=== PATIENT | male | born 1965 | race Caucasian/White ===

== ENCOUNTER 2019-06-19 10:13 | Day surgery (SDC) | payer OTHER ==
[2019-06-16 15:56] VITALS: BMI 28.5
[2019-06-19 11:10] VITALS: RESP 16; TEMP 97.1
[2019-06-19] MEDS: LACTATED RINGERS 1,000 ML IV SCH ×2 (11:14→12:12)
[2019-06-19] MEDS ORDERED: PROPOFOL 10 MG/ML 20 ML VIAL IV ONE (12:13)
--- NOTE | 2019-06-19 12:36 | P.PCN ---
Date of Procedure: 06/19/19 Procedure(s) Performed: BRIEF HISTORY: Patient is a 53-year-old pleasant white male scheduled for an elective colonoscopy as a part of screening for colorectal neoplasia. PROCEDURE PERFORMED: Colonoscopy with snare polyp rectum PREOPERATIVE DIAGNOSIS: Screening for colon cancer. IV sedation per Anesthesia. PROCEDURE: After informed consent was obtained, the patient, was brought into the endoscopy unit. IV sedation was administered by Anesthesia under continuous monitoring. Digital rectal examination was normal. Initially the Olympus CF-160 flexible video colonoscope was then inserted in the rectum, gradually advanced into the cecum without any difficulty. Careful examination was performed as the scope was gradually being withdrawn. Ileocecal valve and the appendiceal orifice were visualized and appeared normal. Prep was excellent. Mucosa of the cecum, ascending colon appeared normal. In the transverse colon there was a 5 mm sessile polyp removed by snare polypectomy. Rest of the transverse colon, descending colon, sigmoid colon, and rectum appeared normal. Retroflexion was performed in the rectum and no lesions were seen. The patient tolerated the procedure well. IMPRESSION: 5 mm colon polyp status post polypectomy Rest of the colon appeared normal RECOMMENDATIONS: Findings of this examination were discussed with the patient as well as his family. He was advised to follow with the biopsy results. If the biopsy shows an adenoma, he can have a repeat colonoscopy in 5 years.
[2019-06-19 12:56] VITALS: BP 121/76; PULSE 69
== END 2019-06-19 13:05 | disposition home or self-care (01) ==
LOC: ORWHC2ENDO 10:13
PROVIDERS: ATTEND Internal Medicine Gastroenterology
DX: Z12.11 Encounter for screening for malignant neoplasm of colon (principal); D12.3 Benign neoplasm of transverse colon
CPT/HCPCS: 88305; 45385; J2704

== ENCOUNTER → 2019-06-23 | Outpatient (CLI) | payer OTHER ==
--- NOTE | 2019-06-23 09:12 | US ---
EXAMINATION TYPE: US liver DATE OF EXAM: 06/23/2019 COMPARISON: NONE CLINICAL HISTORY: R74.8 ABN LIVER ENZYMES. no symptoms EXAM MEASUREMENTS: Liver Length: 20.6 cm Gallbladder Wall: 0.2 cm CBD: 0.5 cm Right Kidney: 10.6 x 5.0 x 4.7 cm Pancreas: wnl Liver: difficult to penetrate and slightly enlarged Gallbladder: wnl Evidence for sonographic Obando's sign: no CBD: wnl Right Kidney: wnl Visualized pancreas is slightly heterogeneous without mass or ductal dilatation. IVC is seen near hep atic dome. Visualized liver is heterogeneously hyperechoic without intrahepatic ductal dilatation. Ev aluation for focal masses is suboptimal. Common bile duct measures within normal limits. No shadowing mobile gallstones. No hydronephrosis in the right kidney is seen. IMPRESSION: Heterogeneous hyperechoic appearance of liver favors diffuse fatty infiltration, underlyi ng hepatocellular disease is felt less likely but not excluded. Imaging guided random biopsy for tiss ue analysis can be performed if desired.
== END | disposition home or self-care (01) ==
LOC: RADUSWWP 08:05
PROVIDERS: ATTEND Family Medicine
DX: R74.8 Abnormal levels of other serum enzymes (principal)
CPT/HCPCS: 76705

== ENCOUNTER → 2019-08-12 | Outpatient (CLI) | payer OTHER ==
--- NOTE | 2019-08-12 16:03 | US ---
EXAMINATION TYPE: US scrotum with doppler. Grayscale and color Doppler Duplex imaging performed of t he scrotum. DATE OF EXAM: 08/12/2019 COMPARISON: NONE CLINICAL HISTORY: N50.89 DISORDER OF MALE GENITAL ORGANS. Pt states palpable lump left testicle x 2 d ays, denies pain EXAM MEASUREMENTS: TESTICLES: Right Testicle: 4.4 x 2.5 x 3.6 cm Left Testicle: 4.0 x 2.0 x 3.4 cm EPIDIDYMIS HEAD: Right Epididymis: 1.1 cm Left Epididymis: 1.0 cm Doppler performed to assess for testicular vascularity; good bilateral color flow and waveforms are s een. There is no evidence of testicular torsion. Presence of hydroceles: No Presence of varicoceles: Left No abnormality appreciated within left testicle/scrotum where pt feels palpable/ Microcalcification s scattered bilaterally IMPRESSION: Incidentally noted testicular microlithiasis. No sonographic abnormality to correspond to the patient's palpable left testicular abnormality.
== END | disposition home or self-care (01) ==
LOC: RADUSWWP 15:27
PROVIDERS: ATTEND Family Medicine
DX: N50.89 Other specified disorders of the male genital organs (principal)
CPT/HCPCS: 76870; 93975

== ENCOUNTER 2024-10-20 09:53 | Day surgery (SDC) | payer OTHER ==
[2024-10-19 10:28] VITALS: BMI 26.4
[2024-10-20] MEDS ORDERED: LIDOCAINE 1% (10MG/ML) FOR IV START INTRADERMA PRN (10:12)
[2024-10-20 10:21] VITALS: TEMP 98.2
[2024-10-20] MEDS: IV FLUID CONTINUATION 1,000 ML IV ONE (10:27)
[2024-10-20] MEDS: LACTATED RINGERS 1,000 ML IV SCH (10:30)
[2024-10-20] MEDS ORDERED: PROPOFOL 10 MG/ML 20 ML VIAL IV ONE (11:52)
[2024-10-20] MEDS ORDERED: LIDOCAINE 1% INJ 10MG/ML (20 ML MDV) ONE (11:52)
--- NOTE | 2024-10-20 12:13 | P.PCN ---
Date of Procedure: 10/20/24 Procedure(s) Performed: BRIEF HISTORY: Patient is a 58-year-old pleasant white female scheduled for an elective colonoscopy as a part of evaluation for history of colon polyps. Last colonoscopy was 5 years ago. PROCEDURE PERFORMED: Colonoscopy. PREOPERATIVE DIAGNOSIS: History of colon polyps IV sedation per Anesthesia. PROCEDURE: After informed consent was obtained, the patient, was brought into the endoscopy unit. IV sedation was administered by Anesthesia under continuous monitoring. Digital rectal examination was normal. Initially the Olympus CF-160 flexible video colonoscope was then inserted in the rectum, gradually advanced into the cecum without any difficulty. Careful examination was performed as the scope was gradually being withdrawn. Ileocecal valve and the appendiceal orifice were visualized and appeared normal. Prep was excellent. Mucosa of the cecum, ascending colon, transverse colon, descending colon, sigmoid colon, and rectum appeared normal. Retroflexion was performed in the rectum and no lesions were seen. The patient tolerated the procedure well. IMPRESSION: Normal-appearing colon from rectum to cecum with no evidence of colorectal neoplasia RECOMMENDATIONS: Findings of this examination were discussed with the patient as well as his family. He was advised to have repeat colonoscopy in 10 years..
[2024-10-20 12:34] VITALS: RESP 20
[2024-10-20 13:02] VITALS: BP 126/82; PULSE 53
== END 2024-10-20 13:03 | disposition home or self-care (01) ==
LOC: ORWHC2ENDO 09:53
PROVIDERS: ATTEND Internal Medicine Gastroenterology
DX: Z12.11 Encounter for screening for malignant neoplasm of colon (principal); E78.5 Hyperlipidemia, unspecified; Z87.442 Personal history of urinary calculi; Z79.899 Other long term (current) drug therapy; Z86.0100 Personal history of colon polyps, unspecified; Z98.890 Other specified postprocedural states
CPT/HCPCS: 45378

== ENCOUNTER → 2025-02-02 | Outpatient (CLI) | payer OTHER ==
--- NOTE | 2025-02-02 12:22 | CA ---
Exercise Stress Test Report Name: Derick Gardner Exam Date: 02/02/2025 10:49 Exam Location: [place] Stress Ht (in): 72 Wt (lb): 195 BSA: 2.11 Ordering Phys: Jamila Melendez MD Referring Phys: Jamila Melendez MD Technologist: CLINTON MARY Age: 59 Gender: M : 1965 Procedure CPT: Indications: I20.89 OTHER FORMS OF ANGINA PECTORIS ICD-10 Codes: Patient History: CHEST PAIN, HTN, HYPERCHOLESTEROLEMIA, FAMILY HX OF HEART DISEASE Medications: ATORVASTATIN,,,, LISINOPRIL,,,, MULTIVITAMIN,,,, ASA 81 mg,,, Meds past 24 hrs: Pretest Chest Pain: STRESS TEST George Protocol Exercise Duration (min:sec): 12:[address] Depressions (mm): Angina Score: Awad Score: Resting HR (bpm): 65 Peak HR (bpm): 139 Resting BP (mmHg): 129 / 87 Peak BP (mmHg): 209 / 85 MPHR: 162 Target HR: 138 % MPHR: 86 METS: 12.1 Total Dose: Peak Dose: Atropine: Double Product: 30925 BP Response: Stress Termination: TARGET HR REACHED/MAX EXERTION Stress Symptoms: NO SYMPTOMS Stress Summary: ECG ANALYSIS Resting ECG: Stress ECG: CONCLUSIONS Patient underwent exercise stress EKG with a George protocol treadmill stress test. Patient exercised into Stage 4 for a total of 12 minutes reaching a total of 12.1 METS. Patient's maximum heart rate was 139 which represented 85% age-predicted maximum heart rate. Stress EKG findings: At baseline patient's EKG showed normal sinus rhythm, normal axis, no significant ST or T wave abnormalities. At peak exercise, EKG showed no significant change from baseline. Conclusions: 1. Normal EKG response to exercise without evidence of inducible ischemia. 2. Excellent exercise capacity. Dr. Eusebio Rendon DO (Electronically Signed) Final Date: 02 February 2025 12:21
== END | disposition home or self-care (01) ==
LOC: RADNMMAIN 10:21
PROVIDERS: ATTEND Family Medicine
DX: I20.89 Other forms of angina pectoris (principal)
CPT/HCPCS: 93017